=== PATIENT | female | born 1995 | race African-American/Black ===

== ENCOUNTER 2022-10-11 07:10 | Inpatient (IN) | payer OTHER ==
[2022-10-11] MEDS: DEXTROSE 5%-LACTATED RINGERS 1,000 ML IV SCH ×2 (07:45→14:50)
[2022-10-11] MEDS ORDERED: OXYTOCIN 30 UNITS in 0.9% NS 30 UNIT/500 ML INFUS.BAG IVPB ONE (08:29)
[2022-10-11] MEDS: OXYTOCIN 30 UNITS in 0.9% NS 30 UNIT/500 ML INFUS.BAG IVPB SCH (08:30)
[2022-10-11] MEDS ORDERED: PROMETHAZINE HCL 25 MG/1 ML VIAL IVPB ONE (08:33)
[2022-10-11] MEDS ORDERED: BUTORPHANOL TARTRATE 1 MG/ML VIAL IVPB ONE (08:33)
[2022-10-11 08:52] VITALS: BMI 28.7
[2022-10-11 09:01] LABS: INR 0.94 (0.83-1.09); PROTHROMBIN TIME (PATIENT) 10.9 SEC (9.7-13.0)
[2022-10-11 09:04] LABS: ACTIVATED PTT 26.6 SECONDS (25.2-36.5)
[2022-10-11 09:05] LABS: BASO % 0.3 % (0-2.0); EOS % 0.9 % (0-4.5); HEMATOCRIT 33.3 % (32.4-45.2); HEMOGLOBIN 11.1 GM/dL (10.7-15.3); LYMPH % 16.7 % (8-40); MCH 31.3 pg (25.7-33.7); MCHC 33.2 g/dl (32.0-36.0); MEAN CELL VOLUME 94.4 fl (80-96); MEAN PLT VOLUME 10.4 fl (7.5-11.1); MONO % 7.4 % (3.8-10.2); NEUT % 74.7 % (42.8-82.8); PLATELET COUNT 161 10^3/uL (134-434); RBC 3.53 M/mm3 (3.60-5.2); RDW 14.1 % (11.6-15.6)
[2022-10-11 09:32] LABS: CALCIUM 9.4 mg/dL (8.5-10.1)
[2022-10-11 09:33] LABS: BLOOD UREA NITROGEN 6.2 mg/dL (7-18)
[2022-10-11 09:36] LABS: CREATININE 0.7 mg/dL (0.55-1.3)
[2022-10-11 11:52] LABS: HIV INTERPRETATION NEGATIVE (NEGATIVE)
[2022-10-11] MEDS ORDERED: ELECTROLYTE-148 SOLN 500 ML IV ONE (20:30)
[2022-10-11] MEDS ORDERED: CITRIC ACID/SODIUM CITRATE 30 ML UNIT-DOSE CUP PO ONE (20:30)
[2022-10-11] MEDS ORDERED: FENTANYL CITRATE/PF 50 MCG/ML VIAL ONE (20:38)
[2022-10-11] MEDS ORDERED: morphine SULFATE (PF) 1 MG/2 ML SYRINGE ONE (20:38)
[2022-10-11] MEDS ORDERED: ELECTROLYTE-148 SOLN 1,000 ML IV SCH (21:00)
[2022-10-11] MEDS ORDERED: ceFAZolin SODIUM 1 GM VIAL ONE (21:27)
[2022-10-11] MEDS ORDERED: KETOROLAC TROMETHAMINE 30 MG/1 ML VIAL ONE (21:27)
[2022-10-11] MEDS ORDERED: ONDANSETRON 4 MG/2 ML VIAL ONE (21:27)
[2022-10-11] MEDS ORDERED: OXYTOCIN 10 UNITS/ML VIAL ONE (21:27)
[2022-10-11] MEDS ORDERED: METHYLERGONOVINE MALEATE 0.2 MG/1 ML AMP IM PRN (22:36)
[2022-10-11] MEDS ORDERED: IBUPROFEN 800 MG/8 ML IJ IVPB PRN (22:36)
[2022-10-11] MEDS ORDERED: ACETAMINOPHEN 325 MG TABLET (FP) PO PRN (22:36)
[2022-10-11] MEDS ORDERED: ONDANSETRON 4 MG/2 ML VIAL IVPUSH PRN (22:39)
[2022-10-11] MEDS ORDERED: morphine SULFATE/PF 1 MG/2 ML (2cc Syringe - QUVA) EP ONE (22:39)
[2022-10-11] MEDS ORDERED: ACETAMINOPHEN 1000 MG/100 ML BAG IVPB ONE (22:41)
[2022-10-12] MEDS ORDERED: NIFEdipine E.R. 30 MG TABLET PO ONE ×2 (00:05→00:14)
[2022-10-12 07:27] LABS: BASO % 0.2 % (0-2.0); EOS % 0.5 % (0-4.5); HEMATOCRIT 31.7 % (32.4-45.2); HEMOGLOBIN 10.6 GM/dL (10.7-15.3); LYMPH % 14.2 % (8-40); MCH 31.6 pg (25.7-33.7); MCHC 33.4 g/dl (32.0-36.0); MEAN CELL VOLUME 94.6 fl (80-96); MONO % 6.1 % (3.8-10.2); PLATELET COUNT 133 10^3/uL (134-434); RBC 3.35 M/mm3 (3.60-5.2); WHITE BLOOD COUNT 12.3 K/mm3 (4.0-10.0)
[2022-10-12] MEDS: OXYTOCIN 20 UNITS in 0.9% NS 20 UNIT/1,000 ML INFUS.BAG IV SCH ×2 (08:10)
[2022-10-12] MEDS: FERROUS SO4 325 MG TABLET (FP) PO SCH ×2 (10:35→22:04)
[2022-10-12] MEDS: NIFEdipine E.R. 30 MG TABLET PO SCH (10:35)
[2022-10-12] MEDS: PRENATAL VITAMINS W/ FOLIC ACID TABLET (FP) PO SCH (10:35)
[2022-10-12] MEDS ORDERED: oxyCODONE HCL 5 MG TABLET PO PRN (10:36)
[2022-10-12] MEDS: SIMETHICONE 80 MG TAB.CHEW (FP) PO PRN ×2 (15:52→22:05)
[2022-10-12] MEDS: IBUPROFEN 600 MG TABLET (FP) PO PRN ×2 (15:52→22:05)
[2022-10-12] MEDS: DEXTROSE 5%-LACTATED RINGERS 1,000 ML IV SCH (19:50)
[2022-10-12] MEDS: OXYTOCIN 30 UNITS in 0.9% NS 30 UNIT/500 ML INFUS.BAG IVPB SCH (19:50)
[2022-10-12] MEDS: SENNOSIDES/DOCUSATE COMBO (SENNA PLUS) TABLET (UD) PO PRN (22:04)
[2022-10-12] MEDS ORDERED: BISACODYL 10 MG SUPP.RECT RC PRN (22:36)
[2022-10-13] MEDS: oxyCODONE HCL 5 MG TABLET PO PRN ×2 (00:33→19:14)
[2022-10-13] MEDS: guaiFENesin 200 MG/10 ML 10 ML UNIT-DOSE CUPS PO PRN ×2 (00:48→10:53)
[2022-10-13] MEDS: IBUPROFEN 600 MG TABLET (FP) PO PRN ×3 (05:48→23:51)
[2022-10-13] MEDS: PRENATAL VITAMINS W/ FOLIC ACID TABLET (FP) PO SCH (10:48)
[2022-10-13] MEDS: FERROUS SO4 325 MG TABLET (FP) PO SCH ×2 (10:48→21:57)
[2022-10-13] MEDS: NIFEdipine E.R. 30 MG TABLET PO SCH (10:52)
[2022-10-13] MEDS: SIMETHICONE 80 MG TAB.CHEW (FP) PO PRN ×3 (11:34→22:00)
[2022-10-13] MEDS: SENNOSIDES/DOCUSATE COMBO (SENNA PLUS) TABLET (UD) PO PRN (21:57)
[2022-10-14] MEDS: NIFEdipine E.R. 30 MG TABLET PO SCH (10:45)
[2022-10-14] MEDS: PRENATAL VITAMINS W/ FOLIC ACID TABLET (FP) PO SCH (10:45)
[2022-10-14] MEDS: FERROUS SO4 325 MG TABLET (FP) PO SCH (10:45)
[2022-10-14 11:18] VITALS: BP 136/88; PULSE 99; RESP 17; TEMP 98.6
[2022-10-14] MEDS: IBUPROFEN 600 MG TABLET (FP) PO PRN (12:20)
== END 2022-10-14 12:25 | disposition home or self-care (01) | DRG 788 ==
LOC: JLDR 07:10 → J3W 10-12 00:24
PROVIDERS: ADMIT Obstetrics & Gynecology; ATTEND Obstetrics & Gynecology
PROC: 10D00Z1 Extraction of Products of Conception, Low, Open Approach (ICD-10-PCS; principal; 2022-10-11)
PROC: 10907ZC Drainage of Amniotic Fluid, Therapeutic from Products of Conception, Via Natural or Artificial Opening (ICD-10-PCS; 2022-10-11)
DX: O62.0 Primary inadequate contractions (principal); O76 Abnormality in fetal heart rate and rhythm complicating labor and delivery; O48.0 Post-term pregnancy; O69.1XX0 Labor and delivery complicated by cord around neck, with compression, not applicable or unspecified; O77.0 Labor and delivery complicated by meconium in amniotic fluid; Z3A.40 40 weeks gestation of pregnancy; Z37.0 Single live birth
CPT/HCPCS: 36415; 80048; 85025; 85610; 85730; 86780; 86850; 86900; 86901; 87389; 88307-TC; C9803-CS; U0003; U0005